=== PATIENT | female | born 1945 | race Caucasian/White ===

== ENCOUNTER 2017-03-13 11:44 | Day surgery (SDC) | payer MEDICARE ==
[~2017-03-13] VITALS: Ht 167.6 cm; Wt 92.1 kg
[~2017-03-13 11:44] MED LIST: Sodium Chloride LOK Flush 10 mL Syringe IVFLUSH SCH; fentaNYL-PF 50 mCg/mL 2 mL Inj IVPUSH PRN
[2017-03-13 12:11] VITALS: BP 167/83; PULSE 85; RESP 14; O2SAT 95
[2017-03-13] MEDS ORDERED: MULT-666 PO (12:16)
[2017-03-13] MEDS ORDERED: CALC-975 PO (12:16)
[2017-03-13 13:01] VITALS: BP 143/69; PULSE 73; RESP 14; O2SAT 96
[2017-03-13 13:10] VITALS: BP 136/68; PULSE 69; RESP 16; O2SAT 97
--- NOTE | 2017-03-13 13:28 | ENDO ---
[address] [address] ENDOSCOPY PROCEDURE PATIENT: VALENTE RODRIGEZ : 1945 MR#: [id number] ADMIT: 03/13/2017 JOB ID: [id number] DATE OF SERVICE: 03/13/2017 PRIMARY CARE PHYSICIAN: Rita Jay MD PROCEDURE: Screening colonoscopy. INDICATION: The patient is a 71-year-old woman whose most recent screening colonoscopy was in 2004. EQUIPMENT: PC[employer]in[employer]-H180AL. SEDATION: Versed 5 mg, fentanyl 100 mcg. PREPARATION QUALITY: Excellent. COMPLICATIONS: None identified. PROCEDURE INFORMATION: The patient was brought into the endoscopy suite and placed in a left lateral decubitus position. Sedation was achieved using the above-stated medications with the addition of oxygen administered via nasal cannula. Digital rectal exam was performed and unremarkable. The scope was then introduced through the anus and advanced under direct visualization through to the cecum. The appendiceal orifice was identified and photographed. The terminal ileum was intubated and photographed. The quality of the preparation was excellent. The scope was then slowly withdrawn, carefully examining the mucosa for any defects or polyps. None were identified. In the descending colon, there was scattered diverticula. Retroflexed views were obtained in the rectum and demonstrated some mild hemorrhoids. The entire procedure was well tolerated without complication. FINDINGS: Diverticulosis. RECOMMENDATIONS: No further screening colonoscopy is recommended.
== END 2017-03-13 23:59 | disposition home or self-care (01) ==
LOC: END 11:44
PROVIDERS: ATTEND General Practice
DX: Z12.11 Encounter for screening for malignant neoplasm of colon (principal); K57.30 Diverticulosis of large intestine without perforation or abscess without bleeding; Z80.0 Family history of malignant neoplasm of digestive organs
CPT/HCPCS: G0105; G0500; J7030